=== PATIENT | female | born 1960 | race African-American/Black ===

== ENCOUNTER → 2024-10-16 | Day surgery (SDC) | payer BC ==
[2024-10-14 15:26] LABS: ANION GAP 14.6 mmol/L (8-16); CREATININE, SERUM 0.79 mg/dL (0.57-1.11); POTASSIUM 3.6 mmol/L (3.5-5.1)
[~2024-10-16] MED LIST: AMLODIPINE BESYL5 MG PO; AMLODIPINE-ATO1 EAC2; AMLODIPINE-BEN1 EAC4 PO; CALCIUM CARBON500 MG PO; DEXAMETHASONE SOD PHOS INJ 4 MG/ML SDV ONE; EPHEDRINE SULFATE INJ 50 MG/ML VIAL ONE; ESTRADIOL1 MG PO; FAMOTIDINE 20 MG/2 ML VIAL IV ONE; FENTANYL CITRATE/PF 100MCG/2 ML INJ ONE; FLONASE ALLERG9.9 ML INH; GABAPENTIN300 MG PO; JARDIANCE25 MG PO; LIDOCAINE HCL 2% LOCAL INJ 5 ML SDV VIAL INJ ONE; MIDAZOLAM HCL 2 MG/2 ML VIAL ONE; MULTI-VITAMIN1 EACH PO; ONDANSETRON HCL INJ 2MG/ML 2ML 2 MG/ML VIAL ONE; PRAVASTATIN SOD40 MG PO; PROPOFOL IV EMULSION 10 MG/ML 20 ML VIAL ONE; XYZAL5 MG PO
[2024-10-16] MEDS: LACTATED RINGER'S 1,000 ML ONE (10:54)
[2024-10-16 15:20] VITALS: BP 125/71; PULSE 78; RESP 16; O2SAT 97
== END | disposition home or self-care (01) ==
LOC: OR 10:15
PROVIDERS: ATTEND Podiatrist Foot & Ankle Surgery
DX: S93.491A Sprain of other ligament of right ankle, initial encounter (principal); S93.411A Sprain of calcaneofibular ligament of right ankle, initial encounter; M25.771 Osteophyte, right ankle; M19.071 Primary osteoarthritis, right ankle and foot; M25.371 Other instability, right ankle; I10 Essential (primary) hypertension; E78.5 Hyperlipidemia, unspecified; G47.33 Obstructive sleep apnea (adult) (pediatric); E11.9 Type 2 diabetes mellitus without complications; E03.9 Hypothyroidism, unspecified; M06.9 Rheumatoid arthritis, unspecified; X58.XXXA Exposure to other specified factors, initial encounter; Z88.0 Allergy status to penicillin; Z88.2 Allergy status to sulfonamides; Z01.812 Encounter for preprocedural laboratory examination; Z79.899 Other long term (current) drug therapy
CPT/HCPCS: 36415; 80048; 82948; C1713; C1762; J0690; J1100; J1308; J2003; J2250; J2405